=== PATIENT | female | born 1945 | race Caucasian/White ===

== ENCOUNTER 2024-05-07 10:38 | Emergency (ER) | payer MEDICARE, BC ==
[~2024-05-07] VITALS: Ht 154.9 cm; Wt 71.7 kg
[2024-05-07] MEDS ORDERED: LIDOCAINE 1% INJ 50 ML MDV IJ ONE (11:02)
[2024-05-07] MEDS ORDERED: TDAP [DIPH/PERTUSSIS/TET] 0.5 ML VIAL IM ONE (11:06)
[2024-05-07] MEDS: TDAP [DIPH/PERTUSSIS/TET] 0.5 ML VIAL IM ONE (11:14)
[2024-05-07] MEDS: LIDOCAINE 1% INJ 50 ML MDV IJ ONE (11:23)
[2024-05-07] MEDS: BACI/NEOM/POLY B OINT PKT 1 UDPKT PACKET TP ONE (11:28)
[2024-05-07 13:12] VITALS: BP 105/81; TEMP 98.2; O2SAT 99
== END 2024-05-07 13:13 | disposition home or self-care (01) ==
LOC: ER 11:09
DX: S01.01XA Laceration without foreign body of scalp, initial encounter (principal); R51.9 Headache, unspecified; W01.0XXA Fall on same level from slipping, tripping and stumbling without subsequent striking against object, initial encounter; Y93.89 Activity, other specified; Y92.89 Other specified places as the place of occurrence of the external cause; Y99.8 Other external cause status
CPT/HCPCS: 99285; 70450; 12002; 90471; 90715; J3490; A6403 ×2